=== PATIENT | female | born 1975 | race Caucasian/White ===

== ENCOUNTER → 2017-07-11 | Outpatient (CLI) | payer BC | LOC: BRMIMAGING 10:44 | PROVIDERS: ATTEND Registered Nurse | DX: Z12.31 Encounter for screening mammogram for malignant neoplasm of breast (principal) | CPT/HCPCS: G0202 ==

== ENCOUNTER → 2017-09-24 | Outpatient (CLI) | payer BC | LOC: BRMIMAGING 08:47 | PROVIDERS: ATTEND Registered Nurse | DX: Z12.39 Encounter for other screening for malignant neoplasm of breast (principal); R92.8 Other abnormal and inconclusive findings on diagnostic imaging of breast | CPT/HCPCS: 76641-PO; G0206 ==